=== PATIENT | male | born 1945 | race Caucasian/White ===

== ENCOUNTER 2022-07-13 09:36 | Outpatient (CLI) | payer MEDICARE ==
[2022-07-13 11:49] LABS: Hemoglobin 15.9 g/dL (13.5-17.5)
[2022-07-13 12:08] LABS: Anion Gap 14 mmol/L (10-20); BUN (Urea Nitrogen) 16 mg/dL (8.4-25.7); Calc. Creatinine Clearance 0 mL/min (70-130); Calcium 9.3 mg/dL (7.8-10.44); Carbon Dioxide 26 mmol/L (23-31); Chloride 107 mmol/L (98-107); Estimated GFR 88; Glucose 87 mg/dL (83-110); Potassium 4.8 mmol/L (3.5-5.1); Sodium 142 mmol/L (136-145)
== END 2022-07-13 09:37 | disposition home or self-care (01) ==
LOC: CSHLAB 09:36
PROVIDERS: ATTEND Otolaryngology Otolaryngic Allergy
DX: Z01.818 Encounter for other preprocedural examination (principal)
CPT/HCPCS: 80048; 85014; 85018; 93005; 93010

== ENCOUNTER 2022-07-18 09:04 | Day surgery (SDC) | payer MEDICARE ==
[2022-07-14 16:03] VITALS: BMI 27.3
[2022-07-18] MEDS ORDERED: SUGAMMADEX SODIUM 200 MG/2 ML VIAL ONE (12:22)
[2022-07-18] MEDS ORDERED: Rocuronium Bromide 10 MG/ML (10ML VIAL) ONE (12:24)
[2022-07-18] MEDS ORDERED: Dexamethasone 20 MG/5 ML VIAL ONE (12:24)
[2022-07-18] MEDS ORDERED: Fentanyl 100 MCG/2 ML VIAL ONE (12:24)
[2022-07-18] MEDS ORDERED: PROPOFOL 20 ML ONE (12:24)
[2022-07-18] MEDS ORDERED: Glycopyrrolate 0.2 MG/ML 5 ML SYRINGE ONE (12:24)
[2022-07-18] MEDS ORDERED: Ondansetron PF 4 MG/2 ML Vial ONE (12:24)
[2022-07-18] MEDS ORDERED: Midazolam HCl 2 mg/2 ml Vial ONE (12:24)
[2022-07-18] MEDS ORDERED: Lidocaine 1% PF 5 ML VIAL ONE (12:25)
[2022-07-18] MEDS ORDERED: EPINEPHrine 1 MG/ML AMP ONE (12:59)
[2022-07-18] MEDS ORDERED: Labetalol HCl 100 MG/20 ML VIAL ONE (13:29)
== END 2022-07-18 15:20 | disposition home or self-care (01) ==
LOC: CSHSDC 09:04
PROVIDERS: ATTEND Otolaryngology Otolaryngic Allergy
PROC: 0CBM8ZX Excision of Pharynx, Via Natural or Artificial Opening Endoscopic, Diagnostic (ICD-10-PCS; principal; 2022-07-18)
DX: C01 Malignant neoplasm of base of tongue (principal); R22.1 Localized swelling, mass and lump, neck; J30.1 Allergic rhinitis due to pollen; Z87.891 Personal history of nicotine dependence
CPT/HCPCS: 88305; 88331; 88341; 88342; J0171; J1100; J2250; J2405; J2704; J3010